=== PATIENT | female | born 1970 | race Caucasian/White ===

== ENCOUNTER 2022-05-27 17:24 | Emergency (ER) | payer BC ==
[~2022-05-27] VITALS: Ht 170.2 cm; Wt 88.0 kg
[2022-05-27 17:29] VITALS: BP_SYST 109; BP_SYST 95
[2022-05-27 18:00] LABS: BASOPHILS % (AUTO) 0.7 % (0.0-2.0); EOSINOPHILS # (AUTO) 0.2 K/uL (0.0-0.4); HEMATOCRIT 38.8 % (36-48); HEMOGLOBIN 12.9 g/dL (12.0-16.0); LYMPHOCYTES # (AUTO) 1.1 K/uL (1.0-5.5); LYMPHOCYTES % (AUTO) 23.5 % (20.5-51.5); MEAN CORPUSCULAR HEMOGLOBIN 28 pg (27-31); MEAN CORPUSCULAR HGB CONC 33 % (32-36); MEAN CORPUSCULAR VOLUME 86 fL (79.0-98.0); MONOCYTES # (AUTO) 0.4 K/uL (0.0-1.0); MONOCYTES % (AUTO) 7.4 % (1.7-9.3); NEUTROPHILS # (AUTO) 3.1 K/uL (1.8-7.7); NEUTROPHILS % (AUTO) 64.4 % (40.0-70.0); PLATELET COUNT (AUTO) 122 K/uL (130-430); RED BLOOD CELL COUNT(AUTO) 4.53 MIL/uL (4.2-6.2); RED CELL DISTRIBUTION WIDTH 15.1 % (9.0-15.0); WHITE BLOOD COUNT (AUTO) 4.8 K/uL (4.8-10.8)
--- NOTE | 2022-05-27 18:02 | NUR ---
Patient to ER bed 05 to gown for evaluation. Side rails up.
[2022-05-27 18:24] LABS: ANION GAP 7 (5-15); CHLORIDE 103 mmol/L (98-107); CREATININE 0.74 mg/dL (0.55-1.30); GFR AFRICAN AMERICAN 105 mL/min (>90); GLUCOSE 93 mg/dL (70-99); UREA NITROGEN, BLOOD 15 mg/dL (8-21)
[2022-05-27 18:37] LABS: ALANINE AMINOTRANSFERASE 39 U/L (12-78); ALBUMIN 3.4 g/dL (3.4-4.8); ASPARTATE AMINOTRANSFERASE 24 U/L (10-37); TOTAL BILIRUBIN 0.3 mg/dL (0.0-1.0)
[2022-05-27] MEDS ORDERED: MECLIZINE HCL 25 MG TABLET (ANITVERT) PO ONE (18:45)
[2022-05-27 18:55] LABS: BILIRUBIN,URINE NEGATIVE (NEGATIVE); BLOOD, URINE NEGATIVE (NEGATIVE); COLOR,URINE YELLOW (YELLOW); GLUCOSE,URINE NEGATIVE (NEGATIVE); KETONES,URINE TRACE (NEGATIVE); LEUKOCYTE ESTERASE ,URINE NEGATIVE (NEGATIVE); NITRITE, URINE NEGATIVE (NEGATIVE); PH,URINE 5.5 (5.0-8.0); PROTEIN URINE NEGATIVE (NEGATIVE); UROBILINOGEN,URINE 0.2 (0.2-1.0)
[2022-05-27 18:59] LABS: CLARITY/URINE HAZY (CLEAR)
[2022-05-27 19:06] LABS: BACTERIA,URINE FEW /HPF (None Seen); RBC,URINE NONE SEEN /HPF (0-3)
[2022-05-27 19:07] LABS: MUCUS,URINE 3+ /LPF (None Seen); URIC ACID CRYSTALS,URINE 0-10 /HPF (None Seen)
[2022-05-27] MEDS ORDERED: MECL-261 PO ×2 (20:01→20:19)
[2022-05-27] MEDS ORDERED: FLUT16SP16 NS ×2 (20:01→20:19)
--- NOTE | 2022-05-27 20:02 | NUR ---
DR. RUBI AT BEDSIDE DISCUSSING RESULTS
--- NOTE | 2022-05-27 20:09 | NUR ---
Patient given written and verbal discharge instructions and verbalizes understanding. ER MD discussed with patient the results and treatment provided. Patient in stable condition. ID arm band removed. Rx of FLONASE AND ANTIVERT given. Patient educated on pain management and to follow up with PMD. Pain Scale 0/10 Opportunity for questions provided and answered. Medication side effect fact sheet provided.
[2022-05-27 20:49] VITALS: BP_SYST 112
== END 2022-05-27 20:49 | disposition home or self-care (01) ==
LOC: SED 17:24
DX: H68.009 Unspecified Eustachian salpingitis, unspecified ear (principal); R51.9 Headache, unspecified; M54.2 Cervicalgia; Z79.899 Other long term (current) drug therapy
CPT/HCPCS: 99284; 70450; 71045; 80053; 81000; 85025; 84484; 36415; 76376; 81025; J8597; 93005